=== PATIENT | male | born 1990 | race Caucasian/White ===

== ENCOUNTER 2023-08-03 16:59 | Emergency (ER) | payer OTHER, SELFPAY ==
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
[2023-08-03 17:01] VITALS: BP 114/78; PULSE 80; O2SAT 99
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
[2023-08-03 17:57] VITALS: BP 119/77; PULSE 59; RESP 18; TEMP 36.7; O2SAT 95; BMI 25.1
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
[2023-08-03 19:25] VITALS: BP 119/77; PULSE 59; RESP 18; TEMP 36.7; O2SAT 95
== END 2023-08-03 19:27 | disposition left against medical advice (07) ==
PROVIDERS: Emergency Provider Internal Medicine
DX: S16.1XXA Strain of muscle, fascia and tendon at neck level, initial encounter (principal); S60.211A Contusion of right wrist, initial encounter; M54.2 Cervicalgia; R51.9 Headache, unspecified; M25.531 Pain in right wrist; V43.52XA Car driver injured in collision with other type car in traffic accident, initial encounter; Y93.9 Activity, unspecified; Y92.410 Unspecified street and highway as the place of occurrence of the external cause; Y99.8 Other external cause status; Z79.899 Other long term (current) drug therapy
CPT/HCPCS: 70450; 72125; 73110; 73130; 99282; 99284